=== PATIENT | female | born 1975 | race Caucasian/White ===

== ENCOUNTER 2017-04-30 08:24 | Emergency (ER) | payer SELFPAY ==
[2017-04-30 08:42] VITALS: BP 97/64
--- NOTE | 2017-04-30 09:05 | UC ---
Throat Pain/Nasal Bashir HPI - HPI Summary HPI Summary: UTi symptoms last week which resolved after a course of left over abx. She presents today with sore throat and low grade fever. no prior ENT disease or surgery. - History of Current Complaint Chief Complaint: UCRespiratory Stated Complaint: SORE THROAT FEVER Time Seen by Provider: 04/30/17 08:52 Hx Obtained From: Patient ?: No Onset/Duration: Gradual Onset Severity: Severe Cough: None Associated Signs & Symptoms: Positive: Dysphagia, Nasal Discharge, Fever. Negative: FB Sensation, Drooling, Hoarseness, Sinus Discomfort, Vomiting, Rash - Epiglottits Risk Factors Epiglottis Risk Factors: Negative - Allergies/Home Medications Allergies/Adverse Reactions: Allergies Allergy/AdvReac Type Severity Reaction Status Date / Time No Known Allergies Allergy Verified 04/30/17 08:33 Home Medications: Home Medications Acetaminophen [Acetaminophen Extra Stren] 1,000 mg PO Q6H PRN 04/30/17 [History Confirmed 04/30/17] Oxycodone HCl [Oxaydo] 5 mg PO ONCE PRN 04/30/17 [History Confirmed 04/30/17] PMH/Surg Hx/FS Hx/Imm Hx Previously Healthy: Yes - Surgical History Surgical History: Yes Surgery Procedure, Year, and Place: EAR TUBES. TUBAL. hysterectomy. - Family History Known Family History: Positive: Other - no related ent hx. - Social History Alcohol Use: Occasionally Substance Use Type: None Substance Use Comment - Amount & Last Used: occassionally Smoking Status (MU): Heavy Every Day Tobacco Smoker Type: Cigarettes Amount Used/How Often: 1/2 PPD Review of Systems All Other Systems Reviewed And Are Negative: Yes Physical Exam Triage Information Reviewed: Yes Appearance: No Pain Distress, Well-Nourished, Pain Distress - obviuos pain with swallowing. Vital Signs: Initial Vital Signs Temp 100 F 04/30/17 08:36 Pulse 68 04/30/17 08:36 Resp 14 04/30/17 08:36 BP 97/64 04/30/17 08:36 Pulse Ox 99 04/30/17 08:36 Vital Signs Reviewed: Yes Eye Exam: Normal ENT: Positive: Pharyngeal erythema, Nasal congestion, TMs normal, Tonsillar swelling, Tonsillar exudate. Negative: Nasal drainage, Trismus, Muffled/hoarse voice Neck exam: Normal Neck: Positive: Supple, Tenderness @, Enlarged Nodes @ - lorenzo submandibular tenderness and enlargement. Respiratory Exam: Normal Cardiovascular Exam: Normal Abdominal Exam: Normal Abdomen Description: Positive: Nontender, No Organomegaly, Soft Musculoskeletal Exam: Normal Neurological Exam: Normal Psychological Exam: Normal Throat Pain/Nasal Course/Dx - Course Course Of Treatment: tonsillitis. she agrees to get re eval in two days. No asymmetry or fluctuance. no signs of abscess. - Differential Dx/Diagnosis Differential Diagnosis/HQI/PQRI: Epiglottitis, Foreign Body, Influenza, Laryngitis, Luc's Angina, Mononucleosis, Otitis Media, Peritonsillar Abscess , Pharyngitis, Sinusitis, Tonsillitis, URI Provider Diagnoses: tonsillitis. Discharge - Discharge Plan Condition: Fair Disposition: HOME Prescriptions: Amoxicillin/Clavulanate TAB* [Augmentin TAB 875*] 875 mg PO BID #20 tab Methylprednisolone [Medrol Dosepak 4 MG*] 4 mg PO .SEE MALINI INSTRUCTION #21 tab Patient Education Materials: Tonsillitis (ED) Referrals: Stephanie Alvarez MD [Primary Care Provider] - 2 Days
== END 2017-04-30 09:21 | disposition home or self-care (01) ==
LOC: UCCORT 08:24
DX: J03.90 Acute tonsillitis, unspecified (principal); R50.9 Fever, unspecified; Z90.710 Acquired absence of both cervix and uterus; F17.210 Nicotine dependence, cigarettes, uncomplicated
CPT/HCPCS: 87086; 87651; 99212; G0463

== ENCOUNTER 2021-10-20 16:16 | Inpatient (IN) ==
[2021-10-20 21:05] LABS: ABS Basophils 0.1 10^3/ul (0-0.2); ABS Eosinophils 0.1 10^3/ul (0-0.6); ABS Lymphocytes 3.1 10^3/ul (1.0-4.8); ABS Neutrophils 6.7 10^3/ul (1.5-7.7); Eosinophil % 1.3 %; Hematocrit 39 % (35-47); Hemoglobin 13.3 g/dL (12.0-16.0); Mean Corpuscular HGB Conc 34 g/dL (31-36); Mean Corpuscular Hemoglobin 32 pg (27-31); Mean Corpuscular Volume 92 fL (80-97); Mean Platelet Volume 7.4 fL (7.4-10.4); Platelet Count 287 10^3/uL (150-450); Red Blood Count 4.19 10^6 /uL (3.70-4.87); Red Cell Distribution Width 13 % (10-15); White Blood Count 10.9 10^3/uL (3.5-10.8)
[2021-10-20] MEDS ORDERED: Piperacillin/Tazobac ADVAN 3.375 GM in NS 0.9% 100 ml BAG 100 ML IV ONE (21:05)
[2021-10-20 21:25] LABS: Albumin/Globulin Ratio 1.4 (1-3); C Reactive Protein 23.46 mg/L (<8.01); Calcium 8.6 mg/dL (8.6-10.3); Globulin 2.9 g/dL (2-4); Magnesium 1.8 mg/dL (1.9-2.7); Potassium 3.9 mmol/L (3.5-5.0); Total Bilirubin 0.5 mg/dL (0.2-1.0); Total Protein 6.9 g/dL (6.4-8.9); eGFR CKD-EPI 115.8 (>60)
[2021-10-20] MEDS ORDERED: Zosyn per Pharmacy NOTE FOLLOW UP SCH (22:00)
[2021-10-20 23:14] LABS: Rapid COVID-19 Molecular Undetected (Undetected)
[2021-10-21] MEDS: ZOSYN 3.375 GM Q8H per EXTENDED INFUSION IV SCH ×3 (02:22→18:17)
[2021-10-21 04:43] LABS: ABS Eosinophils 0.2 10^3/ul (0-0.6); ABS Lymphocytes 2.4 10^3/ul (1.0-4.8); ABS Monocytes 0.7 10^3/ul (0-0.8); ABS Neutrophils 4.5 10^3/ul (1.5-7.7); Eosinophil % 3.2 %; Hematocrit 40 % (35-47); Hemoglobin 13.3 g/dL (12.0-16.0); Lymphocyte % 29.9 %; Mean Corpuscular HGB Conc 33 g/dL (31-36); Mean Corpuscular Hemoglobin 31 pg (27-31); Mean Corpuscular Volume 93 fL (80-97); Mean Platelet Volume 7.5 fL (7.4-10.4); Platelet Count 265 10^3/uL (150-450); Red Cell Distribution Width 13 % (10-15); White Blood Count 7.9 10^3/uL (3.5-10.8)
[2021-10-21 05:01] LABS: Calcium 8.5 mg/dL (8.6-10.3); Potassium 3.6 mmol/L (3.5-5.0); eGFR CKD-EPI 110.9 (>60)
[2021-10-21] MEDS: NS 0.9% 1000 ml BAG 1,000 ML IV SCH ×2 (06:10→14:30)
[2021-10-21] MEDS ORDERED: Morphine 2 MG/ML SYRINGE IV ONE (06:18)
[2021-10-21] MEDS ORDERED: Magnesium Sulfate 2 gm BAG 2 GM/50 ML BAG IVPB ONE (07:55)
[2021-10-21] MEDS: Morphine 2 MG/ML SYRINGE IV PRN (09:24)
[2021-10-21] MEDS ORDERED: Bupivacaine 0.5% 50 ML MDV VIAL ONE (12:15)
[2021-10-21] MEDS ORDERED: fentaNYL 100 mcg/2 ml 50 MCG/ML VIAL IV PRN (13:00)
[2021-10-21] MEDS ORDERED: Morphine 4 MG/ML VIAL (1 ml) IV PRN (13:00)
[2021-10-22] MEDS: NS 0.9% 1000 ml BAG 1,000 ML IV SCH (00:39)
[2021-10-22] MEDS: ZOSYN 3.375 GM Q8H per EXTENDED INFUSION IV SCH ×3 (02:19→17:59)
[2021-10-22] MEDS ORDERED: Buffered Lidocaine 1% SYRIN 1 ml INTRADERM ONE (11:08)
[2021-10-22] MEDS: CMC:diPHENhydraMINE CREAM 2%(NF) 28 gm TUBE TOPICAL PRN ×2 (13:45→20:06)
[2021-10-22] MEDS: Morphine 2 MG/ML SYRINGE IV PRN ×2 (17:59→23:05)
[2021-10-23] MEDS ORDERED: NS 0.9% 100 ml BAG 100 ML ONE (02:27)
[2021-10-23] MEDS: ZOSYN 3.375 GM Q8H per EXTENDED INFUSION IV SCH ×3 (02:33→18:12)
[2021-10-23 06:27] LABS: ABS Eosinophils 0.3 10^3/ul (0-0.6); ABS Monocytes 0.8 10^3/ul (0-0.8); ABS Neutrophils 4.2 10^3/ul (1.5-7.7); Eosinophil % 3.5 %; Hematocrit 36 % (35-47); Hemoglobin 12.2 g/dL (12.0-16.0); Lymphocyte % 35.6 %; Mean Corpuscular HGB Conc 34 g/dL (31-36); Mean Corpuscular Hemoglobin 31 pg (27-31); Mean Corpuscular Volume 93 fL (80-97); Mean Platelet Volume 7.5 fL (7.4-10.4); Platelet Count 273 10^3/uL (150-450); Red Blood Count 3.88 10^6 /uL (3.70-4.87); Red Cell Distribution Width 13 % (10-15); White Blood Count 8.3 10^3/uL (3.5-10.8)
[2021-10-23 06:43] LABS: Calcium 8.7 mg/dL (8.6-10.3); Magnesium 1.8 mg/dL (1.9-2.7); Potassium 3.8 mmol/L (3.5-5.0); eGFR CKD-EPI 109.3 (>60)
[2021-10-24] MEDS: ZOSYN 3.375 GM Q8H per EXTENDED INFUSION IV SCH (02:33)
[2021-10-24] MEDS ORDERED: cefTRIAXone 2 GM ADDV.VIAL 2 GM in NS 0.9% 100 ml BAG 100 ML IV SCH (09:00)
[2021-10-24] MEDS ORDERED: DAPTOmycin SDV 500 MG in NS 0.9% 50 ML 50 ML IVPB SCH (10:00)
[2021-10-24 11:37] VITALS: BP 129/77
== END 2021-10-24 14:10 | disposition home or self-care (01) | DRG 951 ==
LOC: SUATTDRO 16:16 → SSU 16:16
PROVIDERS: ADMIT Internal Medicine; ATTEND Internal Medicine